=== PATIENT | female | born 1945 | race Caucasian/White ===

== ENCOUNTER → 2018-05-14 | Outpatient (CLI) | payer OTHER, BC ==
[~2018-05-14] VITALS: Ht 160 cm; Wt 72.6 kg
[~2018-05-14] MED LIST: CELEXA20 MG PO; COZAAR 25 MG TA25 M1 PO; DICLOFENAC SODI75 MG PO; ESTRADIOL 1 MG T1 M1 PO; LIPITOR80 MG PO; LISINOPRIL-HCT1 EAC1 PO; NORCO 10-325 T1 EACH PO; PREVACID15 MG PO; PROVERA2.5 MG PO; TRAMADOL 50 MG50 MG PO; ZOLPIDEM TART12.5 M1 PO
--- NOTE | ~2018-05-14 | HPC ---
[facility] [address] [place] [address] PAIN MANAGEMENT CONSULTATION Name: REYNA BEACH Room #: REG [facility].#: [id number] Admission: 05/14/18 Attend Phys: Serge Bhatti DO Discharge: Date of : 47 Report #: [id number] THIS REPORT FOR: //name// CC: BLAINE Perez Physician staff DATE OF SERVICE: 05/14/2018 CHIEF COMPLAINT: Thoracic radiculopathy. HISTORY OF PRESENT ILLNESS: As you know, the patient is a very pleasant 72-year-old female with longstanding history of thoracic pain radiating to her left side in a radicular fashion. She states her pain has been present for greater than 4 years. She denies any specific injury or trauma that may have led to symptom development. She was referred to our clinic at [facility] by her Neurosurgery team to trial thoracolumbar epidural injection to determine if her symptoms would show improvement. She underwent multiple procedures at our [facility] office with good and prolonged efficacy. Most recent epidural injection provided reportedly 80% improvement in overall pain, but unfortunately, her symptoms have begun to return. She is now placing pain score at around 8/10. She returns today to our [facility] office to begin treatment of her thoracic radiculopathy. She denies any new injury, new trauma or any changes in medical history since our last visit of 02/15/2018. ALLERGIES: No known drug allergies. CURRENT MEDICATIONS: Estradiol 1 mg once a day, lisinopril/hydrochlorothiazide 20/12.5 mg once a day, citalopram 20 mg per day, zolpidem 12.5 mg p.o. at bedtime, tramadol 50 mg p.r.n., atorvastatin 80 mg per day, diclofenac sodium 75 mg b.i.d., Provera 2.5 mg once a day, losartan 25 mg per day, lansoprazole 15 mg per day, hydrocodone 10/325 1 tab p.o. q. 6 hours p.r.n. pain. SOCIAL HISTORY: The patient denies tobacco, alcohol, IV or illicit drug use. She is a retired nurse, retired in the past. She is not receiving workmen's compensation nor is she trying to obtain disability benefits, unaccompanied today. PQRS: The patient has osteoarthritic changes of the low back, bilateral knees. No rheumatoid arthritis. She is not a fall risk, has not have a fall in the last 3 months. She is placing pain intensity at 8/10. She is not on blood thinners, but is treated for hypertension. She has been on long-term opioids for greater than 6 weeks, but has a low assessment for addiction. Functional assessment pain impact tool 29/70 indicating moderate interference of daily [address] [address] PAIN MANAGEMENT CONSULTATION Name: REYNA BEACH Room #: REG [facility]#: [id number] Admission: 05/14/18 Attend Phys: Serge Bhatti DO Discharge: Date of : 46 Report #: [id number] activities secondary to pain. IMAGING: No new imaging available. PHYSICAL EXAMINATION: VITAL SIGNS: Blood pressure 133/83, pulse 79, respiratory rate 16 and unlabored. The patient is 98% on room air. Height 5 feet 3 inches tall, weight 160 pounds, BMI calculated at 28.4. GENERAL: Well-developed, well-nourished, well-hydrated 72-year-old female appearing stated age, placing current pain score at 8/10. HEENT: Normocephalic, atraumatic. Pupils equal, round, reactive to light. Extraocular muscles are intact. Sclerae nonicteric without injection. NEUROLOGIC: Cranial nerves 2 through 12 grossly intact. Speech remains fluent. The patient deemed an excellent historian. LUNGS: Clear, no wheeze, rhonchi or rales. CARDIOVASCULAR: Regular. No appreciable gallop, no rub. ABDOMEN: Soft, nontender, nondistended. EXTREMITIES: Show no clubbing, no cyanosis, no edema. MUSCULOSKELETAL: There is palpatory tenderness over the paraspinal musculature, thoracic spine, mainly on the left side. No spinous process tenderness. Upper extremity strength, lower extremity strength is symmetrical 5/5. Seated straight leg raising negative. Supine straight leg raising positive at approximately 80 degrees. There are no rashes, lesions or ulcerations overlying the area of discomfort. ASSESSMENT: 1. Thoracic radiculopathy. 2. Stenosis of the thoracic spine. 3. Displacement of thoracic intervertebral disk with radiculopathy. 4. Thoracic spondylosis with radiculopathy. 5. Chronic intractable pain. PLAN: 1. The patient returns today in followup visit having noted an 80% improvement in overall pain with the previous thoracic epidural injection. She does very well with thoracic injections providing upwards of 2-3 months' worth of improvement. She returns today to our clinic at [facility] as scheduling conflicts were becoming difficult for the patient to continue to follow at our [facility] office. She has transferred her care to our clinic here to undergo next in the series of thoracic epidural injections. We have advised the patient of the risks and benefits of a thoracic epidural injection. These risks include but not necessarily limited to bleeding, bruising, infection, worsening pain, no relief of pain; also risk of temporary or permanent muscle weakness, temporary or permanent nerve damage, possible paralysis pneumothorax and . The patient states she understood and wished to proceed. [address] [address] PAIN MANAGEMENT CONSULTATION Name: REYNA BEACH Room #: [facility].#: [id number] Admission: 05/14/18 Attend Phys: Serge Bhatti DO Discharge: Date of : 46 Report #: [id number] 2. No medication changes made at today's visit. The patient will continue current medical therapy as previously prescribed. 3. We will see the patient back in followup visit on an as needed basis for the next in the series of thoracic epidural injections. PROCEDURE NOTE DESCRIPTION OF PROCEDURE: Thoracic epidural injection under fluoroscopic guidance. After obtaining written consent, the patient was taken back to fluoroscopy suite, placed in prone position with pillow under abdomen to decrease lumbar lordosis and to accentuate thoracic kyphosis. Skin overlying the thoracic area was then prepped and draped in aseptic fashion. The intervertebral spaces were identified by AP fluoroscopy. Skin and subcutaneous tissue overlying target site of injection anesthetized with 3 mL of 1% lidocaine. A 20-gauge 3-1/2 inch Tuohy needle advanced under fluoroscopic guidance towards the epidural space using a paramedian approach. Epidural space was identified using loss of resistance to air technique. After negative aspiration for heme or cerebrospinal fluid, 1 mL of Omnipaque was injected demonstrating excellent thoracic epidurogram. After negative aspiration for heme or cerebrospinal fluid, 5 mL of a solution containing 2 mL 40 mg per mL, 80 mg total triamcinolone, 3 mL lidocaine 1% injected slowly. Needle retracted shelter, flushed with 1 mL of 1% lidocaine and removed. Sterile bandage was placed over injection site. No new motor deficits present in the upper or lower extremities following procedure. The patient tolerated procedure well, carefully escorted to recovery room in stable condition. No apparent complications. After meeting discharge criteria, the patient discharged home. <ELECTRONICALLY SIGNED> By: Serge Bhatti DO 05/21/18 [id number] Serge Bhatti DO /nt
[2018-05-14 13:29] VITALS: BP 133/83
== END | disposition home or self-care (01) ==
LOC: PAIN 10:25
DX: M51.14 Intervertebral disc disorders with radiculopathy, thoracic region (principal); M48.04 Spinal stenosis, thoracic region; M47.24 Other spondylosis with radiculopathy, thoracic region; M19.90 Unspecified osteoarthritis, unspecified site; G89.29 Other chronic pain; I10 Essential (primary) hypertension; Z79.899 Other long term (current) drug therapy; Z79.891 Long term (current) use of opiate analgesic

== ENCOUNTER → 2018-07-17 | Outpatient (CLI) | payer OTHER, BC ==
[~2018-07-17] VITALS: Ht 160 cm; Wt 73.8 kg
--- NOTE | ~2018-07-17 | HPC ---
[facility] [address] [place] [address] PAIN MANAGEMENT CONSULTATION Name: REYNA BEACH Room #: REG [facility].#: [id number] Admission: 07/17/18 Attend Phys: Serge Bhatti DO Discharge: Date of : 46 Report #: [id number] THIS REPORT FOR: //name// CC: Trinity Bhatti Physician staff CHIEF COMPLAINT: Thoracic radiculopathy. HISTORY OF PRESENT ILLNESS: As you know, the patient is a very pleasant 73-year-old female with a longstanding history of thoracic pain radiating to her left side in a radicular fashion. She sought evaluation through Neurosurgery of [facility] who advised the patient to trial more conservative treatment options such as thoracic epidural injections. As you are aware, the patient has undergone thoracic epidural injections with our services with good efficacy. Most recent epidural injection provided 70-80% improvement in overall pain lasting for 2 to 2-1/2 months. Unfortunately, the symptoms have begun to return. She is now placing pain score at 7/10; states her pain is sharp, crushing, aching and periodic in nature; exacerbated with walking and certain activities; epidurals, hydrocodone therapy, heat and cold compresses tend to improve pain. She has returned today in followup visit requesting to undergo next in the series of thoracic epidural injections to address thoracic radicular symptoms. ALLERGIES: No known drug allergies. CURRENT MEDICATIONS: Hydrocodone, lansoprazole, losartan, Provera, diclofenac, atorvastatin, tramadol, zolpidem, citalopram, lisinopril/hydrochlorothiazide, estradiol. SOCIAL HISTORY: The patient denies tobacco, alcohol, IV or illicit drug use. She is a retired nurse, retiring years ago, unaccompanied today. IMAGING: No new imaging available. PQRS: The patient has known osteoarthritic changes of the lumbar spine, bilateral knees, no rheumatoid arthritis. She is not a fall risk, but did have an incidental fall, tripping over objects in her home without injury. She is not on blood thinners. She is treated for hypertension. She is not on chronic opioids. She has a low assessment for opioid addiction. Pain impact 31/70 indicating moderate interference in daily activities secondary to pain. PHYSICAL EXAMINATION: VITAL SIGNS: Blood pressure 116/79, pulse 103, respiratory rate 14 and unlabored. The patient is 97% on room air. Height 5 feet 3 inch tall, weight [facility] [address] [place] [address] PAIN MANAGEMENT CONSULTATION Name: REYNA BEACH Room #: REG [facility]#: [id number] Admission: 07/17/18 Attend Phys: Serge Bhatti DO Discharge: Date of : 46 Report #: [id number] 162.6 pounds, BMI calculated at 28.8. GENERAL: Well-developed, well-nourished, well-hydrated 73-year-old female appearing stated age, placing current pain score 7/10. HEENT: Normocephalic, atraumatic. Pupils equal, round, reactive to light. Extraocular muscles are intact. EXTREMITIES: Show no clubbing, no cyanosis, no edema. MUSCULOSKELETAL: There is some palpatory tenderness noted again over the paraspinal musculature of thoracic spine, no spinous process tenderness. Deep palpation of the area causes pain generation that radiates towards the left side. Upper extremity strength and lower extremity strength are symmetrical 5/5 as is the muscle bulk equal and symmetrical in upper and lower extremities. Seated straight leg raising negative. Supine straight leg raising negative today. Spurling's test negative. ASSESSMENT: 1. Thoracic radiculopathy. 2. Stenosis of the thoracic spine. 3. Displacement of a thoracic intervertebral disk. 4. Thoracic spondylosis without radiculopathy. 5. Chronic intractable pain. PLAN: 1. The patient returns today in followup visit having noted 70% improvement in overall pain with the previous thoracic epidural injection lasting for 2 months with a slow and progressive return of symptoms. The patient states she has been very active over the holiday season and this may have exacerbated her symptoms. She returns requesting to undergo next in the series of thoracic epidural injections as she has noted excellent benefit with previous injections. She has been advised the risks and benefits, states understood and wished to proceed. 2. No medication changes made at today's visit. The patient to continue current medical therapy as previously prescribed. 3. We will see the patient back in followup visit on an as needed basis for the next in the series of thoracic epidural injections. PROCEDURE NOTE DESCRIPTION OF PROCEDURE: Thoracic epidural steroid injection under fluoroscopic guidance. After obtaining written consent, the patient was taken back to Fluoroscopy Suite, placed in prone position with pillow under abdomen to decrease the lumbar lordosis and to accentuate thoracic kyphosis. Skin overlying the thoracic area was then prepped and draped in aseptic fashion. The intervertebral spaces of the thoracic spine were identified using caudal fluoroscopic imaging. Skin and subcutaneous tissue overlying target site of injection was then anesthetized with 3 mL of 1% lidocaine. [address] [address] PAIN MANAGEMENT CONSULTATION Name: REYNA BEACH Room #: [facility]#: [id number] Admission: 07/17/18 Attend Phys: Serge Bhatti DO Discharge: Date of : 46 Report #: [id number] A 20-gauge 3-1/2 inch Tuohy needle advanced under fluoroscopic guidance towards the epidural space using a paramedian approach. Epidural space identified using loss of resistance to air technique. After negative aspiration for heme or cerebrospinal fluid, 1 mL of Omnipaque was injected demonstrating a thoracic epidurogram. After negative aspiration for heme or cerebrospinal fluid, 5 mL of a solution containing 2 mL 40 mg per mL, 80 mg total triamcinolone, 3 mL of lidocaine 1% injected slowly. Needle retracted approximately half way, flushed with 1 mL of 1% lidocaine and removed. Sterile bandage was placed over injection site. No new motor deficits present in lower extremity following procedure. The patient tolerated the procedure well, carefully escorted to recovery room in stable condition. No apparent complications. After meeting discharge criteria, the patient discharged home. By: [id number] Serge Bhatti DO /nt
[2018-07-17 09:55] VITALS: BP 116/79
--- NOTE | 2018-07-17 10:13 | NUR ---
Pain Clinic Assessment: 1. History of Osteoarthritis: Left Lower Extremity Right Lower Extremity History of Rheumatoid Arthritis: Not Applicable 2. Height: 5 ft. 3 in. 160.0 cm. Weight: 162.6 lb. oz. 73.755 kg. Patient's BMI: 28.8 3. Vital Signs: BP: 116/79 Pulse: 103 Resp: 14 Temp: 02 Sat: 97 ECG Mon: 4. Pain Intensity: 7 5. Fall Risk: Dizziness: N Needs help standing or walking: N Fallen in the last 3 months: Y Fall risk comments: 6. Patient on Blood Thinner: None 7. History of Hypertension: Y 8. Opioid Therapy greater than 6 weeks: N Opiate Contract Signed: 9. Risk Assessment Tool Provided: 10. Functional Assessment Tool: 11. Recreational Drug Use: Never Drug Type: Tobacco Use: Never Smoker Tobacco Type: Amount or Packs/day: How Many Years: Alcohol Use: Yes Frequency: Quant:
== END | disposition home or self-care (01) ==
LOC: PAIN 07:01
DX: M51.14 Intervertebral disc disorders with radiculopathy, thoracic region (principal); M47.24 Other spondylosis with radiculopathy, thoracic region; M48.04 Spinal stenosis, thoracic region; G89.29 Other chronic pain; I10 Essential (primary) hypertension; M17.0 Bilateral primary osteoarthritis of knee; Z79.899 Other long term (current) drug therapy; Z79.891 Long term (current) use of opiate analgesic

== ENCOUNTER → 2018-09-11 | Outpatient (CLI) | payer OTHER, BC ==
[~2018-09-11] VITALS: Ht 162.6 cm; Wt 73.0 kg
[~2018-09-11] MED LIST changes: +BUTRANS1 EAC1 TRANSDERM
--- NOTE | ~2018-09-11 | HPC ---
[address] [address] PAIN MANAGEMENT CONSULTATION Name: REYNA BEACH Room #: REG [facility].#: [id number] Admission: 09/11/18 ������������������ Attend Phys: Serge Bhatti DO Discharge: ������������������ Date of : 46 Report #: [id number] THIS REPORT FOR: //name// CC: BLAINE Ruiz MD Physician staff DATE OF SERVICE: 09/11/2018 RENAL CONSULTATION CHIEF COMPLAINT: Thoracic radiculopathy. HISTORY OF PRESENT ILLNESS: As you know, the patient is a very pleasant 73-year-old female who returns today in followup visit with recurrent thoracic radicular symptoms. She was referred to our clinic by her neurosurgery team to trial thoracic epidural injections under fluoroscopic guidance. She does very well with each injection, but unfortunately she is beginning to see reduction in efficacy. She returns today in followup visit to discuss options for treatment. We discussed with the patient in the past treatment options could include physical therapy, stretching exercise, core strengthening, medication changes, adding a baseline pain medication to her current regimen. We discussed the thoracic epidural injections and ultimately surgical decompression. She returns today, discussed possibility of making adjustments in medication therapy. She is considering to undergo the next in the series of thoracic injections to address residual pain, but wishes to trial conservative treatment initially. ALLERGIES: No known drug allergies. CURRENT MEDICATIONS: Hydrocodone, lansoprazole, losartan, Provera, diclofenac, atorvastatin, tramadol, zolpidem, citalopram, lisinopril, hydrochlorothiazide and estradiol. SOCIAL HISTORY: The patient denies tobacco, alcohol, IV or illicit drug use. 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 IMAGING: No new imaging available. PQRS: The patient has osteoarthritic changes of the thoracolumbar area and bilateral knees, no rheumatoid arthritis. She is not a fall risk, has not had a fall in the last 3 months except for an incidental fall tripping over objects at her home. She is not on blood thinners. She is treated for hypertension. She is not on chronic opioids. She has a low assessment for opioid addiction. She [facility] [address] [place] [address] PAIN MANAGEMENT CONSULTATION Name: REYNA BEACH Room #: [facility]#: [id number] Admission: 09/11/18 ������������������ Attend Phys: Serge Bhatti DO Discharge: ������������������ Date of : 46 Report #: [id number] is placing pain impact score today at 29/70, moderate interference of daily activities secondary to pain. PHYSICAL EXAMINATION: VITAL SIGNS: Blood pressure 134/85, pulse 89, respiratory rate 16 and unlabored. The patient is 98% on room air. Height 5 feet 4 inches tall, weight 161 pounds and BMI calculated 27.6. GENERAL: Well-developed, well-nourished, well-hydrated 73-year-old female appearing stated age, placing current pain score today 2/10. HEENT: Normocephalic and atraumatic. Pupils equal, round and reactive to light. EXTREMITIES: Show no clubbing, no cyanosis, and no edema. MUSCULOSKELETAL: The patient does have some palpatory tenderness over the paraspinal musculature of the thoracic area, no spinous process tenderness. There are no rashes, lesions or ulcerations overlying area of discomfort. Deep inhalation and exhalation is met with no increase in pain. Upper extremity strength is symmetrical 5/5 as is lower extremity strength 5/5. Spurling's test negative. Seated straight leg raising and supine straight leg raising negative. ASSESSMENT: 1. Thoracic radiculopathy. 2. Spinal stenosis of the thoracic spine. 3. Displacement of a thoracic intervertebral disk. 4. Thoracic spondylosis with radiculopathy. 5. Chronic intractable pain. PLAN: 1. The patient returns today in followup visit where we have discussed again today treatment options for thoracic radiculopathy. I am concerned as the patient is not showing as fpc benefit with previous thoracic injections. We originally got excellent benefit of symptoms, but this has begun to note reduction in time frame of pain improvement. We discussed possibility of starting the patient on medication. She has been wished to consider that today. She is planning to make an appointment in followup visit to undergo a thoracic injection if medications are ineffective. 2. Recommend starting the patient on a Butrans patch 5 mcg patch. This medication will provide baseline pain control; it will reduce her reliance on oral hydrocodone or tramadol. It will provide her good long-term benefit with little or no side effects such as seen with typical opioid medications; GI upset, nausea and pleuritis. We recommend Butrans 5 mcg patch as an initial trial. If this is sufficient to control pain we recommend continuing the therapy. Otherwise, we may look to adjust this further. The patient was provided prescription of Butrans 5 mcg patch q. week. I have given the patient #4 patches, one month worth of medication. The patient will trial the medication over the next week, and contact our clinic to advise of efficacy. I did advise the patient today that the first day to 2 days with the Butrans patch [address] [address] PAIN MANAGEMENT CONSULTATION Name: REYNA BEACH Room #: REG [facility]#: [id number] Admission: 09/11/18 ������������������ Attend Phys: Serge Bhatti DO Discharge: ������������������ Date of : 46 Report #: [id number] may be noted as having no improvement in symptoms. We are really looking towards the last 3 days of treatment once volume of distribution has been completed to determine the efficacy of this medication. 3. The patient will return to our clinic on an as needed basis for possible thoracic epidural injection. We are hopeful the medication adjustments made above will provide the patient with good benefit, so she does not need to rely on thoracic epidural injections as her only treatment source. We will see her back on an as needed basis for this type of injection. 4. The patient and I did discuss the possibility of having her return to see Neurosurgery if injection therapies are ineffective and medication management does not provide good baseline control. She will consider this option. ��������������������������������������������� ���������������������������������������� By: ��������������������������������������������� [id number] [id number] Serge Bhatti DO /nt
[2018-09-11 11:03] VITALS: BP 134/85
--- NOTE | 2018-09-11 11:07 | NUR ---
Pain Clinic Assessment: 1. History of Osteoarthritis: Left Lower Extremity Right Lower Extremity History of Rheumatoid Arthritis: Not Applicable 2. Height: 5 ft. 4 in. 162.6 cm. Weight: 161.0 lb. oz. 73.029 kg. Patient's BMI: 27.6 3. Vital Signs: BP: 134/85 Pulse: 89 Resp: 16 Temp: 02 Sat: 98 ECG Mon: 4. Pain Intensity: 2 5. Fall Risk: Dizziness: N Needs help standing or walking: N Fallen in the last 3 months: N Fall risk comments: 6. Patient on Blood Thinner: None 7. History of Hypertension: Y 8. Opioid Therapy greater than 6 weeks: N Opiate Contract Signed: 9. Risk Assessment Tool Provided: LOW 10. Functional Assessment Tool: 11. Recreational Drug Use: Never Drug Type: Tobacco Use: Never Smoker Tobacco Type: Amount or Packs/day: How Many Years: Alcohol Use: Yes Frequency: Daily Quant: 2
== END ==
LOC: PAIN 07-31 14:30
DX: M47.24 Other spondylosis with radiculopathy, thoracic region (principal); G89.4 Chronic pain syndrome; M48.04 Spinal stenosis, thoracic region; Z79.899 Other long term (current) drug therapy

== ENCOUNTER → 2018-09-18 | Outpatient (CLI) | payer OTHER, BC ==
[~2018-09-18] VITALS: Ht 162.6 cm; Wt 72.8 kg
[2018-09-18 11:26] VITALS: BP 113/75
--- NOTE | 2018-09-18 11:53 | NUR ---
Pain Clinic Assessment: 1. History of Osteoarthritis: Left Lower Extremity Right Lower Extremity History of Rheumatoid Arthritis: Not Applicable 2. Height: 5 ft. 4 in. 162.6 cm. Weight: 160.4 lb. oz. 72.757 kg. Patient's BMI: 27.5 3. Vital Signs: BP: 113/75 Pulse: 85 Resp: 16 Temp: 02 Sat: 98 ECG Mon: 4. Pain Intensity: 2 5. Fall Risk: Dizziness: N Needs help standing or walking: N Fallen in the last 3 months: N Fall risk comments: 6. Patient on Blood Thinner: None 7. History of Hypertension: Y 8. Opioid Therapy greater than 6 weeks: N Opiate Contract Signed: 9. Risk Assessment Tool Provided: LOW 10. Functional Assessment Tool: 11. Recreational Drug Use: Never Drug Type: Tobacco Use: Never Smoker Tobacco Type: Amount or Packs/day: How Many Years: Alcohol Use: Yes Frequency: Quant:
--- NOTE | 2018-09-23 08:05 | HPC ---
[facility] [place] [address] PAIN MANAGEMENT CONSULTATION Name: REYNA BEACH Room #[facility] [id number] Admission: 09/18/18 ������������������ Attend Phys: Serge Bhatti DO Discharge: ������������������ Date of : 47 Report #: [id number] THIS REPORT FOR: //name// CC: Rosa Isela Zelaya Physician staff REFERRING PHYSICIAN: Dr. Lorenzo Zelaya and Rosa Isela Rodriges. CHIEF COMPLAINT: Thoracic radiculopathy. HISTORY OF PRESENT ILLNESS: As you know, the patient is a very pleasant 73-year-old female who returns today in followup visit indicating improvement with the Butrans patch that was started at our last visit. We gave the patient a 5 mcg patch as a trial to determine if her symptoms would be improved. She is reporting nearly 40% improvement in overall symptoms at this juncture. The patient feels that the medication has improved her overall pain to where she is now able to go about more activities of daily living without significant pain interference. She returns today in followup visit to make further adjustments in the Butrans therapy in hopes of providing increased analgesic benefit. She is pleased with response to date. She is denying any side effects at this time. ALLERGIES: No known drug allergies. CURRENT MEDICATIONS: Butrans, hydrocodone, lansoprazole, losartan, Provera, diclofenac, atorvastatin, tramadol, zolpidem, citalopram, lisinopril, hydrochlorothiazide and estradiol. SOCIAL HISTORY: The patient denies tobacco, alcohol or IV or illicit drug use. She is a retired nurse. Retired years ago, unaccompanied today. PQRS: The patient has osteoarthritic changes of the lumbar spine, bilateral knees, no rheumatoid arthritis. She is not a fall risk, has not had a fall in the last 3 months except for tripping over an object at home with an incidental fall approximately a month and half ago. She is treated for hypertension. She is not on any blood thinners. She is not taking any chronic opioids over a 3-month period. She has a low assessment for opioid addiction. Pain impact score 31/70, moderate interference of daily activities secondary to pain. PHYSICAL EXAMINATION: GENERAL: Well-developed, well-nourished, well-hydrated 73-year-old female appearing stated age, pain is rated today at around 2/10. HEENT: Normocephalic and atraumatic. Pupils equal, round and reactive to light. EXTREMITIES: Show no clubbing, no cyanosis and no edema. [address] [address] PAIN MANAGEMENT CONSULTATION Name: REYNA BEACH Room #[facility]#: [id number] Admission: 09/18/18 ������������������ Attend Phys: Serge Bhatti DO Discharge: ������������������ Date of : 47 Report #: [id number] MUSCULOSKELETAL: There is some palpatory tenderness once again noted over the paraspinal musculature of the thoracic spine and no spinous process tenderness. Upper extremity strength, lower extremity strength symmetrical 5/5. She is intact to light touch from C5-T1 dermatomes, from T1-T12 dermatomes and again from L1 through S2 dermatomes. ASSESSMENT: 1. Thoracic radiculopathy. 2. Stenosis of the thoracic spine. 3. Displacement of a thoracic intervertebral disk. 4. Thoracic spondylosis without radiculopathy. 5. Chronic intractable pain. PLAN: 1. The patient returns today in followup visit having noted excellent benefit with the initial dosing of Butrans at 5 mcg q. week. We would recommend a slight increase in this medication from the 5 mcg patch to the 10 mcg patch in hopes of providing improved analgesic benefit, I believe 10 mcg patches should be appropriate form as well given her response to the 5 mcg dose, she will watch as we increase this medication for any potential side effects including somnolence, decrease in mental acuity, disorientation, confusion, mental slowing or increasing constipation issues. Today, the patient has none of these side effects. We are hopeful the patient will continue to see good benefit with the use of medication. We have instructed the patient for this next week to double her patch at 10 mcg utilizing 2 of the 5 mcg patches. She should see results of the 10 mcg dosing approximately 2-3 days after the increase in medication. If no side effects, but improvement in analgesia, we will be more than willing to provide the patient with a prescription of 10 mcg Butrans patches that will be sent to her local pharmacy. She will keep us informed of the response over the next 7 days. 2. We will see the patient back in followup visit on an as needed basis for possible changes in medication therapy or interventional treatment such as a thoracic epidural injection to address thoracic radiculopathy. We are hopeful the medications adjusted above will provide the patient with good benefit preserving the thoracic injections for when her pain intensifies to a level of intolerable. ��������������������������������������������� <ELECTRONICALLY SIGNED> ���������������������������������������� By: Serge Bhatti DO ��������������������������������������������� 09/23/18 0805 [id number] Serge Bhatti DO /nt
== END ==
LOC: PAIN 07:09
DX: M47.24 Other spondylosis with radiculopathy, thoracic region (principal); M48.04 Spinal stenosis, thoracic region; M51.14 Intervertebral disc disorders with radiculopathy, thoracic region; G89.4 Chronic pain syndrome; Z79.899 Other long term (current) drug therapy

== ENCOUNTER → 2018-12-04 | Outpatient (CLI) | payer OTHER, BC ==
[~2018-12-04] VITALS: Ht 162.6 cm; Wt 68.2 kg
[~2018-12-04] MED LIST changes: +BUTRANS1 EAC2 TRANSDERM; +VOLTAREN GEL 1100 G2 TOP
[2018-12-04 11:27] VITALS: BP 115/66
--- NOTE | 2018-12-04 11:48 | NUR ---
Pain Clinic Assessment: 1. History of Osteoarthritis: Left Lower Extremity Right Lower Extremity History of Rheumatoid Arthritis: Not Applicable 2. Height: 5 ft. 4 in. 162.6 cm. Weight: 150.4 lb. oz. 68.221 kg. Patient's BMI: 25.8 3. Vital Signs: BP: 115/66 Pulse: 76 Resp: 14 Temp: 02 Sat: 99 ECG Mon: 4. Pain Intensity: 7 5. Fall Risk: Dizziness: N Needs help standing or walking: N Fallen in the last 3 months: N Fall risk comments: 6. Patient on Blood Thinner: None 7. History of Hypertension: Y 8. Opioid Therapy greater than 6 weeks: N Opiate Contract Signed: 9. Risk Assessment Tool Provided: LOW-0 10. Functional Assessment Tool: 11. Recreational Drug Use: Never Drug Type: Tobacco Use: Never Smoker Tobacco Type: Amount or Packs/day: How Many Years: Alcohol Use: Yes Frequency: Quant:
--- NOTE | 2018-12-11 12:16 | HPC ---
[facility] [address] [place] [address] PAIN MANAGEMENT CONSULTATION Name: REYNA BEACH Room #: [facility]#: [id number] Admission: 12/04/18 ������������������ Attend Phys: Serge Bhatti DO Discharge: ������������������ Date of : 47 Report #: [id number] THIS REPORT FOR: //name// CC: Rosa Isela Velazquez MD Physician staff DATE OF SERVICE: 12/04/2018 REFERRING PHYSICIAN: Lorenzo Velazquez M.D. CHIEF COMPLAINT: Right shoulder pain. HISTORY OF PRESENT ILLNESS: As you know, the patient is a very pleasant 73-year-old female who returns today in followup visit for continued right shoulder pain. The patient reports previous intra-articular shoulder injection gave 90% improvement in overall pain lasting for up to 4 weeks. She returns with pain level of 7/10, states pain is periodic, aching, crushing and sharp, exacerbated with activity, improves with intra-articular shoulder injection, hydrocodone, cold therapy and hot compresses. She returns today to undergo the next in the series of right shoulder injections in hopes of improving pain further. She denies new injury or trauma that may have led to the symptoms that would continue. ALLERGIES: No known drug allergies. CURRENT MEDICATIONS: See chart. SOCIAL HISTORY: The patient denies tobacco, IV or illicit drug use. Denies any chronic alcohol use. 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 IMAGING DATA: No new imaging available. PQRS: Osteoarthritic changes of the bilateral shoulders, lumbar spine and knees. No rheumatoid arthritis. She is not a fall risk, has not had a fall in the last 3 months. She is not on blood thinners but is treated for hypertension. She is on opioids and has been for 6 weeks. She has a low opioid addiction potential. She is placing pain impact score 29/70 indicating moderate interference of daily activities secondary to pain. PHYSICAL EXAMINATION: VITAL SIGNS: Blood pressure 115/66, pulse 76 and respiratory rate 14 and unlabored. The patient is 99% on room air. Height 5 feet 4 inches tall, weight [facility] [address] [place] [address] PAIN MANAGEMENT CONSULTATION Name: REYNA BEACH Room #: [facility]#: [id number] Admission: 12/04/18 ������������������ Attend Phys: Serge Bhatti DO Discharge: ������������������ Date of : 46 Report #: [id number] 150.4 pounds and BMI calculated 25.8. GENERAL: Well-developed, well-nourished, well-hydrated 72-year-old female appearing stated age, pain is rated today at a level of 7/10. HEENT: Normocephalic and atraumatic. Pupils equal, round and reactive to light. EXTREMITIES: Show no clubbing, no cyanosis and no edema. MUSCULOSKELETAL: There is remaining palpatory tenderness over the right shoulder, both anteriorly and posteriorly. Deep palpation of the area causes intensification of pain. This pain directly over the humeral groove of the biceps tendon. Active and passive range of motion of right shoulder is met with increased pain. ASSESSMENT: 1. Right shoulder pain. 2. Right shoulder osteoarthritis. PLAN: 1. The patient returns today in followup visit having noted excellent benefit with an intra-articular shoulder injection at the last visit. She reports up to 90% improvement in overall pain lasting for 4 weeks. Unfortunately, her symptoms have begun to return. She returns today in followup visit to undergo next in the series of right intra-articular shoulder injections under fluoroscopic guidance. She has been advised risks and benefits of the procedure, states understood and wished to proceed. 2. No changes were made in medication management. We did provide a refill of her Butrans 20 mcg patch 1 patch q. 7 days. I have given the patient #4 patches, which is 1 month worth on medications. She will watch for any side effects. If this medication is working beneficially when she returns in 1 month, we will provide further prescriptions. 3. We will see the patient back in followup visit on an as needed basis for intra-articular shoulder injections. Otherwise, we will see her back in 1 month for medication management. PROCEDURE NOTE DESCRIPTION OF PROCEDURE: Right intra-articular shoulder injection under fluoroscopic guidance. After obtaining written consent, the patient was taken back to fluoroscopy suite, placed in a supine position. The image intensifier (C-arm) was then brought into position over the right shoulder and imaging was obtained. Area was marked with sterile marker and prepped and draped with chlorhexidine. A 27-gauge 1-1/4 inch needle was then used to anesthetize skin and subcutaneous tissue with 2 mL of 1% lidocaine. A 25-gauge 2-inch needle was advanced under fluoroscopic guidance towards the [address] [address] PAIN MANAGEMENT CONSULTATION Name: REYNA BEACH Room #: [facility]#: [id number] Admission: 12/04/18 ������������������ Attend Phys: Serge Bhatti DO Discharge: ������������������ Date of : 47 Report #: [id number] proximal head of the right humerus. Needle was advanced until reaching the osseous structure and then retracted approximately 1 mm. After negative aspiration for heme, 0.2 mL of Omnipaque injected demonstrating excellent right shoulder arthrogram. After negative aspiration for heme, 3 mL of a solution containing 1 mL 40 mg per mL, 40 mg total triamcinolone and 2 mL bupivacaine 0.5% injected slowly. Needle retracted mcfp, flushed with 0.5 mL of 0.5% bupivacaine and removed. Sterile bandage placed over injection site. There were no new motor deficits present in the upper extremity following procedure. The patient tolerated procedure well, carefully escorted to recovery room in stable condition. No apparent complications. After meeting discharge criteria, the patient discharged home. ��������������������������������������������� <ELECTRONICALLY SIGNED> ���������������������������������������� By: Serge Bhatti DO ��������������������������������������������� 12/11/18 1216 1515 2232 Serge Bhatti DO /nt
== END | disposition home or self-care (01) ==
LOC: PAIN 06:50
DX: M19.011 Primary osteoarthritis, right shoulder (principal); Z88.8 Allergy status to other drugs, medicaments and biological substances; Z79.899 Other long term (current) drug therapy

== ENCOUNTER → 2019-02-18 | Outpatient (CLI) | payer OTHER, BC ==
[~2019-02-18] VITALS: Ht 162.6 cm; Wt 67.6 kg
[2019-02-18 09:12] VITALS: BP 145/78
--- NOTE | 2019-02-18 09:20 | NUR ---
Pain Clinic Assessment: 1. History of Osteoarthritis: Left Lower Extremity Right Lower Extremity History of Rheumatoid Arthritis: Not Applicable 2. Height: 5 ft. 4 in. 162.6 cm. Weight: 149.0 lb. oz. 67.586 kg. Patient's BMI: 25.6 3. Vital Signs: BP: 145/78 Pulse: 81 Resp: 16 Temp: 02 Sat: 100 ECG Mon: 4. Pain Intensity: 6 5. Fall Risk: Dizziness: N Needs help standing or walking: N Fallen in the last 3 months: N Fall risk comments: 6. Patient on Blood Thinner: None 7. History of Hypertension: Y 8. Opioid Therapy greater than 6 weeks: N Opiate Contract Signed: 9. Risk Assessment Tool Provided: LOW-0 10. Functional Assessment Tool: 11. Recreational Drug Use: Never Drug Type: Tobacco Use: Never Smoker Tobacco Type: Amount or Packs/day: How Many Years: Alcohol Use: Yes Frequency: Daily Quant: 1-2
--- NOTE | 2019-02-25 11:15 | HPC ---
[facility] [place] [address] PAIN MANAGEMENT CONSULTATION Name: REYNA BEACH [facility] [id number] Admission: 02/18/19 Attend Phys: Serge Bhatti DO Discharge: Date of : 47 Report #: [id number] THIS REPORT FOR: //name// CC: Trinity Velazquez MD Physician staff DATE OF SERVICE: 02/18/2019 REFERRING PHYSICIAN: Trinity Styles NP. PRIMARY CARE PHYSICIAN: Lorenzo Velazquez M.D. CHIEF COMPLAINT: Right shoulder pain. HISTORY OF PRESENT ILLNESS: As you know, the patient is a very pleasant 73-year-old female who returns today in followup visit with recurrent right shoulder pain. She is placing her shoulder pain at 6/10. Previous intra-articular shoulder injection according to the patient gave 100% improvement in overall pain lasting for nearly 5 weeks, unfortunately her symptoms have begun to return. She returns today in followup visit requesting next in the series of right intra-articular shoulder injections. She does note today a recent change in her medical history. She has had an implanted intrathecal pump for chronic axial back pain, which is currently being titrated. She is getting good response in her low back, but is not receiving much in the way of improvement from the shoulder standpoint. She returns today to undergo intra-articular shoulder injection under fluoroscopic guidance. ALLERGIES: No known drug allergies. CURRENT MEDICATIONS: See chart. SOCIAL HISTORY: The patient denies tobacco, IV or illicit drug use. Denies any chronic alcohol use. 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 IMAGING: No new imaging available. PQRS: The patient has known osteoarthritic changes of bilateral shoulders, lumbar spine and knees. No rheumatoid arthritis. She is not a fall risk, has not had a fall in last 3 months. She is placing pain intensity 6/10. She is not on blood thinners, but is treated for hypertension. She is not on chronic opioids, but does have a low opioid addiction potential. She is placing pain impact score 29/70 moderate interference of daily activities secondary to pain. [facility] [address] [place] [address] PAIN MANAGEMENT CONSULTATION Name: REYNA BEACH Room #: [facility]#: [id number] Admission: 02/18/19 Attend Phys: Serge Bhatti DO Discharge: Date of : 47 Report #: [id number] PHYSICAL EXAMINATION: VITAL SIGNS: Blood pressure 145/78, pulse 81, respiratory rate 16 and unlabored. The patient is 100% on room air. Height 5 feet 4 inches tall, weight 149 pounds, BMI calculated 25.6. GENERAL: Well-developed, well-nourished, well-hydrated 72-year-old female, appears stated age, pain is rated around 6/10. HEENT: Normocephalic, atraumatic. Pupils equal, round and reactive to light. EXTREMITIES: Show no clubbing, no cyanosis, and no edema. MUSCULOSKELETAL: Upper extremity strength appears symmetrical 5/5. There is restriction of motion with right shoulder with abduction of the shoulder between the 45 degree angle and 110 degree angle. Pain is elicited with this maneuver. Srinivasa test is positive on the right. Apprehension test is positive on the right. There is noted pain with active and passive range of motion of right shoulder. ASSESSMENT: 1. Right shoulder pain. 2. Right shoulder osteoarthritis. PLAN: 1. The patient returns today in followup visit requesting to undergo a right intra-articular shoulder injection under fluoroscopic guidance. She reports 100% improvement in overall pain with previous injection lasting for greater than 5 weeks, but unfortunately, her symptoms have begun to return with increasing activity at home. She returns today to undergo next in the series of right intra-articular shoulder injections. We have talked at the last visit about more definitive treatment options from the shoulder standpoint including further imaging and a referral to Orthopedics. At this time, the patient wishes to delay that option in hopes of gaining improvement with injections. If these do not remain effective, then look towards surgical options. 2. The patient was provided no changes in medication management. She will continue current medical therapy as previously prescribed. 3. We will see the patient back in followup visit on an as needed basis for intra-articular shoulder injection when necessary PROCEDURE NOTE DESCRIPTION OF PROCEDURE: Right intra-articular shoulder injection under fluoroscopic guidance. After obtaining written consent, the patient was taken back to fluoroscopy suite, placed in a supine position. The image intensifier (C-arm) was then brought into position over the right shoulder and imaging was obtained. Area was marked with sterile marker and prepped and draped with chlorhexidine. A 27-gauge 1-1/4 inch needle was then used to anesthetize the skin and [address] [address] PAIN MANAGEMENT CONSULTATION Name: REYNA BEACH Room #: [facility]#: [id number] Admission: 02/18/19 Attend Phys: Serge Bhatti DO Discharge: Date of : 47 Report #: [id number] subcutaneous tissue with 2 mL of 1% lidocaine. A 25-gauge 2-inch needle was advanced under fluoroscopic guidance towards the proximal head of the right humerus. Needle was advanced until reaching the proximal head then retracted approximately 1 mm. After negative aspiration for heme, 0.3 mL of Omnipaque injected demonstrating an excellent right shoulder arthrogram. After negative aspiration for heme, 3 mL of a solution containing 1 mL 40 mg per mL, 40 mg total triamcinolone and 2 mL bupivacaine 0.5% injected slowly. Needle then retracted snf, flushed with 1 mL of 1% lidocaine and then removed. Sterile bandage placed over injection site. No new motor deficits present in the right upper extremity following procedure. The patient tolerated the procedure well, carefully escorted to recovery room in stable condition. No apparent complications. After meeting discharge criteria, the patient discharged home. <ELECTRONICALLY SIGNED> By: Serge Bhatti DO 02/25/19 1115 0830 1319 Serge Bhatti DO /nt
== END | disposition home or self-care (01) ==
LOC: PAIN 12-18 08:58
DX: M19.011 Primary osteoarthritis, right shoulder (principal); M19.90 Unspecified osteoarthritis, unspecified site; I10 Essential (primary) hypertension; Z79.891 Long term (current) use of opiate analgesic; Z88.8 Allergy status to other drugs, medicaments and biological substances; Z79.899 Other long term (current) drug therapy; Z98.890 Other specified postprocedural states

== ENCOUNTER → 2019-05-27 | Outpatient (CLI) | payer OTHER, BC ==
[~2019-05-27] VITALS: Ht 162.6 cm; Wt 69.1 kg
[2019-05-27 11:19] VITALS: BP 141/83
--- NOTE | 2019-05-27 11:34 | NUR ---
Pain Clinic Assessment: 1. History of Osteoarthritis: Left Lower Extremity Right Lower Extremity History of Rheumatoid Arthritis: Not Applicable 2. Height: 5 ft. 4 in. 162.6 cm. Weight: 152.4 lb. oz. 69.128 kg. Patient's BMI: 26.1 3. Vital Signs: BP: 141/83 Pulse: 70 Resp: 16 Temp: 02 Sat: 100 ECG Mon: 4. Pain Intensity: 10 5. Fall Risk: Dizziness: N Needs help standing or walking: N Fallen in the last 3 months: N Fall risk comments: 6. Patient on Blood Thinner: None 7. History of Hypertension: Y 8. Opioid Therapy greater than 6 weeks: N Opiate Contract Signed: 9. Risk Assessment Tool Provided: LOW-0 10. Functional Assessment Tool: 11. Recreational Drug Use: Never Drug Type: Tobacco Use: Never Smoker Tobacco Type: Amount or Packs/day: How Many Years: Alcohol Use: Yes Frequency: Quant:
--- NOTE | 2019-05-28 12:58 | HPC ---
[facility] [place] [address] PAIN MANAGEMENT CONSULTATION Name: REYNA BEACH Room #: REG [facility]#: [id number] Admission: 05/27/19 Attend Phys: Serge Bhatti DO Discharge: Date of : 47 Report #: [id number] THIS REPORT FOR: //name// CC: Trinity Velazquez MD Physician staff DATE OF SERVICE: 05/27/2019 REFERRING PHYSICIAN: Trinity Styles NP. PRIMARY CARE PHYSICIAN: Lorenzo Velazquez MD. CHIEF COMPLAINT: Right shoulder pain. HISTORY OF PRESENT ILLNESS: As you know, the patient is a very pleasant 73-year-old female who returns today in followup visit with recurrent right shoulder pain. Our previous intra-articular shoulder injection provided excellent improvement in pain, reporting near 100% improvement in overall symptoms until this last week where she was more active in the kitchen and lifting objects during the giving break with family around. She exacerbated her right shoulder pain and returns today with pain level of 10/10, requesting a repeat intra-articular shoulder injection. The patient denies any specific injury that may have led to the recurrence of pain. The patient is able to easily localize pain over the right shoulder and pain is elicited with active and passive range of motion. ALLERGIES: No known drug allergies. CURRENT MEDICATIONS: See chart. SOCIAL HISTORY: The patient denies tobacco, IV or illicit drug use. Denies any chronic alcohol use. 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 IMAGING: No new imaging available. PQRS: The patient has known arthritic changes of the bilateral shoulders right greater than, lumbar spine and knees. No rheumatoid arthritis. She is not at fall risk, has not had a fall in the last 3 months. She is not on blood thinners, nor she is treated for hypertension. She is not on chronic opioids, has a low opiate addiction potential. Pain impact score of 29/70 indicating moderate interference of daily activities secondary to pain. [facility] [address] [place] [address] PAIN MANAGEMENT CONSULTATION Name: REYNA BEACH Room #: [facility]#: [id number] Admission: 05/27/19 Attend Phys: Serge Bhatti DO Discharge: Date of : 46 Report #: [id number] PHYSICAL EXAMINATION: VITAL SIGNS: Blood pressure 141/83, pulse 70, respiratory rate 16 and unlabored. The patient is 100% on room air. Height 5 feet 4 inches tall, weight 152.4 pounds, BMI calculated 26.1. GENERAL: Well-developed, well-nourished, well-hydrated 73-year-old female, placing current pain score 10/10. HEENT: Normocephalic, atraumatic. Pupils equal, round, reactive to light. Extraocular muscles are intact. EXTREMITIES: Show no clubbing, no cyanosis, no edema. MUSCULOSKELETAL: Pain is elicited with active and passive range of motion of the right shoulder when compared to left. There is crepitus noted with passive range of motion. Pain is directly over the anterior and posterior portion of the shoulder. There does not appear to be any significant rotator cuff injury, though I am concerned of this today. The provocation testing does show increased discomfort, but no alicia loss of strength. ASSESSMENT: 1. Right shoulder pain. 2. Right shoulder osteoarthritis. PLAN: 1. The patient returns today in followup visit having noted excellent benefit with previous intra-articular shoulder injection provided at our visit of 12/04/2018. She has been doing well since that time, but unfortunately over the last week, she had increased activity and use of the right shoulder, which exacerbated her right shoulder pain. She is denying any radicular component of symptoms and provocation testing is consistent with right shoulder osteoarthritis and possible rotator cuff injury. We discussed with the patient the risks and benefits of a repeated right intra-articular shoulder injection. She states she understood and wished to proceed. 2. No medication changes made at today's visit. The patient will continue current medical therapy as previously prescribed. 3. We will see the patient back in followup visit on an as needed basis for possible next in the series of right intra-articular shoulder injections. We are hopeful the patient will see good and prolonged benefit with today's procedure. PROCEDURE NOTE DESCRIPTION OF PROCEDURE: Right intra-articular shoulder injection under fluoroscopic guidance. After obtaining written consent, the patient was taken back to fluoroscopy suite, placed in supine position. The image intensifier was then brought into position over the right shoulder and imaging was obtained. The area was marked with sterile marker and prepped with chlorhexidine. A 27-gauge 1-/[address] [address] PAIN MANAGEMENT CONSULTATION Name: REYNA BEACH Room #: REG [facility]#: [id number] Admission: 05/27/19 Attend Phys: Serge Bhatti DO Discharge: Date of : 46 Report #: [id number] needle was then used to anesthetize skin and subcutaneous tissue with 3 mL of 1% lidocaine. A 25-gauge 2-inch needle was advanced under fluoroscopic guidance towards the proximal head of the right humerus. Needle was advanced until reaching the osseous structure then retracted approximately 1-2 mm. After negative aspiration for heme, 0.4 mL of Omnipaque injected demonstrating excellent right shoulder arthrogram. After negative aspiration for heme, 3 mL of a solution containing 1 mL 40 mg per mL, 40 mg total triamcinolone along with 2 mL bupivacaine 0.5% was injected slowly. Needle retracted retirement, flushed with 1 mL of 1% lidocaine then removed. Sterile bandage placed over injection site. There were no new motor deficits present in the upper extremity following procedure. The patient tolerated procedure well, carefully escorted to recovery room in stable condition. No apparent complications. After meeting discharge criteria, the patient discharged home. <ELECTRONICALLY SIGNED> By: Serge Bhatti DO 05/28/19 [id number] Serge Bhatti DO /nt
== END | disposition home or self-care (01) ==
LOC: PAIN 06:55
DX: M25.511 Pain in right shoulder (principal); M19.011 Primary osteoarthritis, right shoulder; G89.29 Other chronic pain; Z98.890 Other specified postprocedural states; Z79.899 Other long term (current) drug therapy; Z88.8 Allergy status to other drugs, medicaments and biological substances

== ENCOUNTER → 2019-09-23 | Outpatient (CLI) | payer OTHER, BC ==
[~2019-09-23] VITALS: Ht 162.6 cm; Wt 67.4 kg
[2019-09-23 09:37] VITALS: BP 103/76
--- NOTE | 2019-09-23 10:01 | NUR ---
Pain Clinic Assessment: 1. History of Osteoarthritis: Left Lower Extremity Right Lower Extremity History of Rheumatoid Arthritis: Not Applicable 2. Height: 5 ft. 4 in. 162.6 cm. Weight: 148.6 lb. oz. 67.404 kg. Patient's BMI: 25.5 3. Vital Signs: BP: 103/76 Pulse: 73 Resp: 16 Temp: 02 Sat: 100 ECG Mon: 4. Pain Intensity: 7 WITH MEDS 5. Fall Risk: Dizziness: N Needs help standing or walking: N Fallen in the last 3 months: N Fall risk comments: 6. Patient on Blood Thinner: None 7. History of Hypertension: Y 8. Opioid Therapy greater than 6 weeks: N Opiate Contract Signed: 9. Risk Assessment Tool Provided: LOW-0 10. Functional Assessment Tool: 11. Recreational Drug Use: Never Drug Type: Tobacco Use: Never Smoker Tobacco Type: Amount or Packs/day: How Many Years: Alcohol Use: Yes Frequency: Quant:
--- NOTE | 2019-09-24 11:57 | HPC ---
[address] [address] PAIN MANAGEMENT CONSULTATION Name: REYNA BEACH Room #: REG [facility]#: [id number] Admission: 09/23/19 Attend Phys: Serge Bhatti DO Discharge: Date of : 46 Report #: [id number] THIS REPORT FOR: cc: ERICK VALENCIA MD Physician not on staff Serge Bhatti DO ~ DATE OF SERVICE: 09/23/2019 REFERRING PHYSICIAN: Dr. Erick Zelaya. CHIEF COMPLAINT: Right shoulder pain. HISTORY OF PRESENT ILLNESS: As you know, the patient is an extremely pleasant 74-year-old female who has returned today in followup visit with recurrent right shoulder pain. As you are aware, the patient has been experiencing chronic right shoulder pain due to severe osteoarthritis for years. She has done very well with intermittent intra-articular shoulder injections. She returns today in followup visit to undergo next in the series. She states that over the past couple of weeks, her pain has begun to return, though she notes an improvement with the previous intra-articular shoulder injection of approximately 70% with this recurrence of pain without inciting injury or trauma. She returns today for next in the series of right intra-articular shoulder injections to build on success of previous intervention. She is placing pain today at a level of 7/10. ALLERGIES: No known drug allergies. CURRENT MEDICATIONS: Estradiol, lisinopril, hydrochlorothiazide, citalopram, zolpidem, tramadol, atorvastatin, diclofenac sodium, Provera, losartan, hydrocodone, and diclofenac. SOCIAL HISTORY: The patient denies tobacco, IV or illicit drug use. Denies any chronic alcohol use. 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 IMAGING: No new imaging available. PQRS: The patient has arthritic changes of bilateral shoulders, right greater than left, lumbar spine, bilateral hips and knees. No rheumatoid arthritis. She is placing her current pain score at 7/10. She is not a fall risk, has not had a fall in last 3 months. She is not on blood thinners, but is treated for hypertension. She is on chronic opioids and has a low opiate addiction potential. Pain impact score is 29/70, moderate interference of daily activities secondary to pain. PHYSICAL EXAMINATION: [facility] [address] [place] [address] PAIN MANAGEMENT CONSULTATION Name: REYNA BEACH Room #: [facility]#: [id number] Admission: 09/23/19 Attend Phys: Serge Bhatti DO Discharge: Date of : 47 Report #: [id number] VITAL SIGNS: Blood pressure 103/76, pulse 73, respiratory rate 16 and unlabored. The patient is 100% on room air. Height 5 feet 4 inches tall, weight 148.6 pounds, BMI calculated 25.5. GENERAL: Well-developed, well-nourished, well-hydrated 74-year-old female appearing her stated age, placing current pain score around 7/10. HEENT: Normocephalic, atraumatic. Pupils equal, round, reactive to light. Speech fluent. The patient deemed an excellent historian. EXTREMITIES: Show no clubbing, no cyanosis, and no edema. MUSCULOSKELETAL: Pain is elicited again with active and passive range of motion of the right shoulder. There is noted crepitus with movement. Pain is located both anterior and posterior of the lateral portion of the shoulder. There does not appear to be any changes in skin color or texture overlying the area. Strength appears symmetrical in left upper extremity and right upper extremity, though pain does cause giveaway strength on the right. ASSESSMENT: 1. Right shoulder pain. 2. Severe right osteoarthritis. PLAN: 1. The patient returns today in followup visit having noted excellent benefit with previous intra-articular shoulder injection. She had been doing very well until just recently where she has had a slow and progressive return of symptoms. She believes her symptoms are related to more cooking and cleaning around the house with the COVID virus sequestration. She has returned today in followup visit requesting to undergo intra-articular shoulder injection to address recurrent pain. She has been advised risks and benefits of this procedure, states she understood and wished to proceed. 2. No medication changes made at today's visit. The patient will continue current medical therapy. 3. We will see the patient back in followup visit on an as-needed basis for possible next in the series of right intra-articular shoulder injections. We also advised the patient if she wishes, we would be more than willing to provide a referral for surgical consultation. PROCEDURE NOTE DESCRIPTION OF PROCEDURE: Right intra-articular shoulder injection under fluoroscopic guidance. After obtaining written consent, the patient was taken back to fluoroscopy suite, placed in a supine position. The image intensifier (C-arm) was then brought into position over the right shoulder and AP imaging was obtained. The area was marked with sterile marker then prepped with chlorhexidine. A 27-gauge 1-1/4 inch needle was then used to anesthetize skin and subcutaneous tissue with 2 mL of 1% preservative-free lidocaine. [address] [address] PAIN MANAGEMENT CONSULTATION Name: REYNA BEACH Room #: [facility]#: [id number] Admission: 09/23/19 Attend Phys: Serge Bhatti DO Discharge: Date of : 46 Report #: [id number] A 25-gauge 2-inch needle was then advanced under fluoroscopic guidance towards the proximal head of the right humerus. Needle was advanced until reaching the proximal head of the humerus and retracted approximately 1 mm. After negative aspiration for heme, 0.2 mL of Omnipaque injected demonstrating excellent right shoulder arthrogram. After negative aspiration for heme, 3 mL of a solution containing 1 mL 40 mg per mL, 40 mg total triamcinolone along with 2 mL bupivacaine 0.5% was injected slowly. Needle retracted long-term, flushed with 1 mL of 1% lidocaine and then removed. Sterile bandage placed over injection site. There were no new motor deficits present in the upper extremity following procedure. The patient tolerated procedure well, carefully escorted to recovery room in stable condition. No apparent complications. After meeting discharge criteria, the patient discharged home. <ELECTRONICALLY SIGNED> By: Serge Bhatti DO 09/24/19 1157 [id number] Serge Bhatti DO /nt
== END | disposition home or self-care (01) ==
LOC: PAIN 06:41
DX: M25.511 Pain in right shoulder (principal); M19.011 Primary osteoarthritis, right shoulder; G89.29 Other chronic pain; M19.90 Unspecified osteoarthritis, unspecified site; Z79.899 Other long term (current) drug therapy; Z79.891 Long term (current) use of opiate analgesic; Z98.890 Other specified postprocedural states; Z88.8 Allergy status to other drugs, medicaments and biological substances

== ENCOUNTER → 2020-04-21 | Outpatient (CLI) | payer OTHER, BC ==
[~2020-04-21] VITALS: Ht 162.6 cm; Wt 67.3 kg
[~2020-04-21] MED LIST changes: +INTRAT INTRATHECA
--- NOTE | ~2020-04-21 | HPC ---
[facility] [place] [address] PAIN MANAGEMENT CONSULTATION Name: REYNA BEACH Room #: REG [facility].#: [id number] Admission: 04/21/20 Attend Phys: Serge Bhatti DO Discharge: Date of : 46 Report #: [id number] CC: ERICK Velazquez MD Physician staff DATE OF SERVICE: 04/21/2020 CHIEF COMPLAINT: Right shoulder pain. HISTORY OF PRESENT ILLNESS: As you know, the patient is an extremely pleasant 74-year-old female who is returning in followup visit with recurrent right shoulder pain. The patient has been experiencing chronic right shoulder pain due to severe osteoarthritis and rotator cuff injury for years. She has done very well with previous intra-articular shoulder injections, but the most recent did not provide long-term benefit. She is concerned that there have been changes within the shoulder that may have led to progression of symptoms. She returns today requesting an intra-articular shoulder injection in hopes of improving pain. She also wishes to discuss options for treatment if injections begin to fail. She denies injury or trauma to the shoulder that may have caused symptom reoccurrence. ALLERGIES: No known drug allergies. CURRENT MEDICATIONS: Diclofenac sodium, hydrocodone, losartan, Provera, atorvastatin, tramadol, zolpidem, citalopram, lisinopril, hydrochlorothiazide, estradiol. SOCIAL HISTORY: The patient denies tobacco, IV or illicit drug use. Denies any chronic alcohol use. 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 IMAGING: No new imaging available. PQRS: The patient has known arthritic changes of bilateral shoulders, right greater than left lumbar spine, bilateral hips and knees. No rheumatoid arthritis. The patient is placing current pain score at around 7/10 with medications and intrathecal pump infusion. She is not a fall risk, has not had a fall in last 3 months. She is not on blood thinners, but is treated for hypertension. She is on chronic opioids, has a low opiate addiction potential. Pain impact of 29/70, moderate interference of daily activities secondary to pain. PHYSICAL EXAMINATION: VITAL SIGNS: Blood pressure 124/67, pulse 76, respiratory rate 16 and unlabored. The patient is 100% on room air. Height 5 feet 4 inches tall, weight 148.4 pounds, BMI calculated 25.5. GENERAL: Well-developed, well-nourished, well-hydrated 74-year-old female appearing stated age, pain is rated today at 7/10. HEENT: Normocephalic, atraumatic. Pupils equal, round and reactive. EXTREMITIES: Show no clubbing, no cyanosis. No appreciable edema. MUSCULOSKELETAL: There is pain noted with passive and active range of motion again of the right shoulder. There is crepitus with movement. The patient is unable to participate in Provocating testing consistent with a rotator cuff injury due to increasing pain. Abduction of the shoulder is out to about 45 degrees before she is unable to maintain elevation on the right. ASSESSMENT: 1. Right shoulder pain. 2. Severe right osteoarthritis. 3. Likely rotator cuff injury. PLAN: 1. The patient returns today in followup visit requesting to undergo intra-articular shoulder injection under fluoroscopic guidance to address 7/10 pain. The patient denies injury or trauma that may have led to symptom reoccurrence. She has been considering options for treatment given the lack of efficacy from a long-term standpoint of pain relief with the previous injection. She wishes to undergo next in the series of intra-articular shoulder injections today, but also wants to discuss other treatment options. The following was discussed with the patient as further treatment options. We discussed physical therapy, stretching exercises and mobility techniques. We discussed medication management with either topical agents or additional oral medications. As you are aware, the patient has an intrathecal pump infusing chronic opioid along with oral opioids. Even with this elevated level of opioid use, her pain is a level of 7/10. Nonsteroidal anti-inflammatories could be beneficial either topically or orally. We discussed repeating the intra-articular shoulder injection today in hopes of improvement in symptoms. We also discussed ultimately surgical repair. I do feel this will ultimately be necessary given the x-ray imaging of her shoulder from our prior eval. The patient is agreeable with an orthopedic referral. 2. The patient was provided an orthopedic referral to [facility] to see Dr. Jero Griffin. The patient will contact the [facility] at her earliest convenience to establish an appointment. I did advise the patient if she needs assistance in getting that appointment scheduled, to contact our clinic. The patient was given the referral in written form today. We will be sending information over to Dr. Griffin's office in regards to her prior treatment with our clinic and our concerns of her right shoulder. 3. We made no changes in the patient's current medication management. She will continue current therapy as previously prescribed. 4. We plan to see the patient back in followup visit on an as needed basis for possible next in the series of intra-articular shoulder injections. We are hopeful she will see good benefit with today's procedure. PROCEDURE NOTE DESCRIPTION OF PROCEDURE: Right intra-articular shoulder injection under fluoroscopic guidance. After obtaining written consent, the patient was taken back to fluoroscopy suite, placed in supine position. The image intensifier (C-arm) was then brought into position over the right shoulder and AP imaging was obtained. The area was marked and then prepped in aseptic fashion using chlorhexidine. A 27-gauge 1-1/4 inch needle was then used to anesthetize skin and subcutaneous tissue with 2 mL of 1% preservative-free lidocaine. A 25-gauge 2-inch needle was then advanced under fluoroscopic guidance towards the proximal head of the right humerus. Needle was advanced until reaching the proximal head of the humerus then retracted approximately 1 mm. After negative aspiration for heme, 0.4 mL of Omnipaque injected demonstrating an excellent right shoulder arthrogram. After negative aspiration for heme, 3 mL of a solution containing 1 mL 40 mg per mL, 40 mg total triamcinolone along with 2 mL bupivacaine 0.5% was injected slowly. Needle was retracted mcfp, flushed with 1 mL of 1% preservative-free lidocaine and removed. Sterile bandage placed over injection site. There were no new motor deficits present in the upper extremities following procedure. The patient tolerated procedure well, carefully escorted to recovery room in stable condition. No apparent complications. After meeting discharge criteria, the patient discharged home. By: [id number] Serge Bhatti DO /nt
[2020-04-21 14:23] VITALS: BP 124/67
--- NOTE | 2020-04-21 14:37 | NUR ---
Pain Clinic Assessment: 1. History of Osteoarthritis: Left Lower Extremity Right Lower Extremity History of Rheumatoid Arthritis: Not Applicable 2. Height: 5 ft. 4 in. 162.6 cm. Weight: 148.4 lb. oz. 67.314 kg. Patient's BMI: 25.5 3. Vital Signs: BP: 124/67 Pulse: 76 Resp: 16 Temp: 02 Sat: 100 ECG Mon: 4. Pain Intensity: 7 WITH MEDS 5. Fall Risk: Dizziness: N Needs help standing or walking: N Fallen in the last 3 months: N Fall risk comments: 6. Patient on Blood Thinner: None 7. History of Hypertension: Y 8. Opioid Therapy greater than 6 weeks: N Opiate Contract Signed: 9. Risk Assessment Tool Provided: LOW-0 10. Functional Assessment Tool: 11. Recreational Drug Use: Never Drug Type: Tobacco Use: Never Smoker Tobacco Type: Amount or Packs/day: How Many Years: Alcohol Use: Yes Frequency: Quant:
== END | disposition home or self-care (01) ==
LOC: PAIN 06:59
PROVIDERS: ATTEND Anesthesiology Pain Medicine
DX: M25.511 Pain in right shoulder (principal); M19.011 Primary osteoarthritis, right shoulder; G89.29 Other chronic pain; I10 Essential (primary) hypertension; M19.90 Unspecified osteoarthritis, unspecified site; Z98.890 Other specified postprocedural states; Z79.899 Other long term (current) drug therapy; Z87.891 Personal history of nicotine dependence; Z88.8 Allergy status to other drugs, medicaments and biological substances

== ENCOUNTER → 2020-12-17 | Outpatient (CLI) | payer OTHER, BC ==
[~2020-12-17] MED LIST changes: +AMBIEN 5 MG TABL5 MG PO; +BIOTIN1 M1 PO; +CALCIUM500 MG PO; +MULTI VITAMIN1 EACH PO
[2020-12-17 13:44] LABS: URINE BILIRUBIN NEGATIVE (Negative); URINE BLOOD NEGATIVE (Negative); URINE CLARITY CLEAR; URINE COLOR YELLOW; URINE GLUCOSE-RANDOM* NEGATIVE (Negative); URINE KETONES NEGATIVE (Negative); URINE LEUKOCYTES-REFLEX TRACE (Negative); URINE NITRITE-REFLEX NEGATIVE (Negative); URINE PROTEIN (DIPSTICK) NEGATIVE (Negative); URINE SPECIFIC GRAVITY 1.015 (1.005-1.035); URINE UROBILINOGEN 0.2 E.U./dl (0.2-1.0)
[2020-12-17 13:46] LABS: INR 0.95; PROTIME 10.4 Seconds (10.5-12.1)
== END ==
LOC: PAC 12:22
PROVIDERS: ATTEND Orthopaedic Surgery Sports Medicine
DX: Z01.812 Encounter for preprocedural laboratory examination (principal); M19.011 Primary osteoarthritis, right shoulder; M25.511 Pain in right shoulder

== ENCOUNTER 2020-12-22 06:27 | Observation (INO) | payer OTHER, BC ==
[~2020-12-22] VITALS: Ht 160 cm; Wt 64.4 kg
--- NOTE | ~2020-12-22 | O ---
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 PROCEDURE PERFORMED: Right shoulder humeral head replacement with open biceps tenodesis. SURGEON: Jero Teague MD CELERY STRIPPER: Uzma Puga PA-C. ANESTHESIA: General with preoperative ultrasound-guided interscalene block. FLUIDS: 1 liter crystalloid. ESTIMATED BLOOD LOSS: 50 mL. IMPLANTS UTILIZED: DePuy Global Unite size 10 anatomic proximal body with a size 12 stem and a 48 x 18 eccentric humeral head. DESCRIPTION OF PROCEDURE: After proper identification of the patient and the operative site in preoperative holding area, the operative site signed by myself. Prophylactic antibiotics given. The patient elected to receive an ultrasound-guided block after reviewing the risks, benefits, alternatives, and potential complications with anesthesia. After a satisfactory block, the patient was brought back to the operative suite after induction of satisfactory general anesthesia per endotracheal tube. The patient was carefully positioned in the beach chair with head of bed elevated approximately 40 degrees. A bump was placed behind the right shoulder. The right shoulder was sterilely prepped and draped in the usual manner and placed within a [employer] limb positioning system. Final skin draping was with Ioban. Anterior deltopectoral approach was planned. Skin was incised sharply. Full-thickness skin flaps were developed. Deltopectoral interval was identified. Cephalic vein was retracted laterally and the long head of biceps tendon was identified. Tenosynovitis was noted [address] [address] OPERATIVE REPORT Name: REYNA BEACH Room #: 150-3 ADM IN M.R.#: [id number] Admission: 12/22/20 Attend Phys: Jero Hdez Discharge: Date of : 47 Report #: [id number] about the tendon. Upper border of the pectoralis major was released portion to librarian helper in exposure purposes and partial thickness tearing in addition to the tenosynovitis of the biceps was noted. Bicipital groove had been opened. Long head of biceps was tenodesed to the undersurface of the pectoralis major using #2 FiberWire. Stump was followed proximally. Rotator interval was opened and higher grade partial thickness tearing with surrounding tendinosis was noted. Anterior circumflex vessels were identified, ligated and cauterized. These were carefully released. Axillary nerve was carefully identified and protected throughout the entire procedure. A lesser tuberosity osteotomy was performed with a thin flexible osteotome. Capsule was then removed, pronounced erosive and degenerative changes were noted within the glenohumeral joint. Effusion was evacuated, pronounced delamination of the humeral head flattening and collapse were noted as well as early erosive changes on the glenoid. Circumferential labral tearing was noted. Humeral head osteotomy was performed in approximately 20 degrees of retroversion using 135-degree guide. Peripheral osteophytes were removed. The rotator cuff remained intact and the proximal body and metaphysis was noted to be smaller than the size that was reamed by hand. She was able to be reamed up to a size 12 stem, but had more of a size 10 proximal body, so a 10 trial and Global Unite brosteotome were utilized. A protection plate was applied and attention was divided to the glenoid. The patient's shoulder was placed within the [employer] preoperative planning software and due to extremely thin nature of her residual remaining glenoid bone as well as the intraoperative findings after the biceps and labrum had been excised circumferentially and the anterior capsule was carefully released from subscap with right angle retractor. Due to the extremely thin nature of her glenoid, I was concerned about possible fracture. This was attempted to be reamed to utilize an insight glenoid and I made the intraoperative decision to just proceed with humeral head replacement based on the intraoperative findings as well as the preoperative imaging studies. The anterior capsule had been released and excised to librarian helper in her external rotation and excursion of the subscapularis. Labrum had been excised circumferentially. A 48 x 18 eccentric humeral head provided the best overall fit and recreation of the proximal humeral anatomy and then four drill holes were placed in the anterior aspect of the humerus where #2 FiberWires were passed. The joint and humeral canal was thoroughly irrigated with normal saline and then the Global Unite stem was assembled on the back table. This was then impacted into position with the inferior 2 sutures being placed around the stem. This was impacted into position and had good purchase. The eccentric head was carefully impacted into position. This nicely restored the proximal humeral anatomy and then the humerus was reduced. There was good stability with range of motion as would be expected with her medial erosion and subscapularis was repaired with four #2 FiberWires in a modified Jose Angel-Vernon technique. The patient could easily externally rotated 45 degrees. Axillary nerve remained intact. The joint was again thoroughly irrigated and then 1 gram of vancomycin powder was utilized half at deep, half at more superficial and 0 Vicryl was used to close the [facility] [address] [place] [address] OPERATIVE REPORT Name: REYNA BEACH Room #: 150-3 ADM IN M.R.#: [id number] Admission: 12/22/20 Attend Phys: Jero Hdez Discharge: Date of : 47 Report #: [id number] deltopectoral interval, 2-0 Vicryl in the subcutaneous tissues followed by running 4-0 Monocryl. Dermabond was applied as well as a sterile dressing and a sling and abduction pillow, which will be utilized for 4 weeks postoperatively. Qualified recovery assistant utilized throughout the entire procedure to aid in patient limb positioning, visualization and retraction of soft tissues, instrument passage, closure and sling and dressing application. Jero Teague MD GRV/KDA By: [id number] Jero Teague MD /nt
[2020-12-22 07:54] VITALS: BP 132/74
[2020-12-22 10:41] VITALS: BP 127/76
--- NOTE | 2020-12-22 14:46 | NUR ---
ASSUMED PT CARE AT 1045. PT IS ALERT & ORIENTED X4. PT HAS IV SITE ON L AC [address] @80 ML/HR. PT IS ON ROOM AIR. PT HAS R SHOULDER HEMIARTHROPLASTY THIS AM. PT HAS AQUACEL DRESSING ON R SHOULDER, POLAR CARE, SLING AND SCD. PT IS UP WITH ASSIST X1 WITH WALKER AND GAITBELT TO THE BATHROOM. PT C/O OF HEADACHE AND GIVEN TYLENOL PER PT REQUEST. PT FAMILY WAS AT THE BEDSIDE. PT TOLERATED CLEAR LIQUID DIET THIS LUNCH AND ADVANCED DIET FOR DINNER. PT TOLERATED DIET AND MEDICATION DURING THE SHIFT. NO C/O OF NAUSEA AND VOMITING DURING THE SHIFT. PT ON THE BED WATCHING TV, BED ON THE LOWEST POSITION, SIDE RAILS UP, CALL LIGHT WITHIN REACH. WILL CONTINUE TO MONITOR PT. FOLLOW POC.
--- NOTE | 2020-12-22 15:26 | NUR ---
ASSESSMENT: CM REVIEWED CHART AND SPOKE WITH PATIENT AT THE BEDSIDE ALONG WITH HER DAUGHTER. PT LIVES AT HOME WITH HER . PT IS S/P TOTAL SHOULDER ARTHROPLASTY. PT REPORTS SHE HAS ABOUT 2 STEPS WITH HANDRAIL TO ENTER HER HOME AND STATES SHE HAS BOUGHT A RECLINDER CHAIR ON BOTH LEVELS. PT REPORTS HAVING ABOUT 9 TOTAL STEPS WITH HANDRAILS TO HER UPPER LEVEL WHERE BEDROOM IS. PT REPORTS SHE IS NORMALLY INDEPENDENT WITH ADLS AND AMBULATION. PT REPORTS THAT SHE HAS HAD HH IN THE PAST BUT UNSURE WHAT AGENCY IT WAS WITH BUT WAS ARRANGED THROUGH [facility]. PT REPORTS HER IS VERY SUPPORTIVE AND CAN ASSIST HER. PT REPORTS SHE DOES NOT HAVE OUTPATIENT THERAPY ARRANGED BUT KNOWS WHERE SHE WOULD GO IF SHE NEEDS IT. CM WILL CONTINUE TO FOLLOW TO ASSIST NEEDED.
[2020-12-22 15:59] VITALS: BP 117/68
[2020-12-22 20:40] VITALS: BP 114/59
--- NOTE | 2020-12-23 04:52 | NUR ---
ASSUMED PT CARE AT 1930. PT WAS LYING IN BED AND HAVING A CONVERSATION WITH SPOUSE. INTRODUCED SELF TO PT AND SPOUSE. PT WAS PLEASNT AND INTERACTIVE. PT AND SPOUSE DID NOT EX[PRESS ANY CONCERNS AND NO VISIBLE SIGN OF DISTRESS WAS NOTED. PT WAS ALERT AND ORIENTED X4. BED ON LOWEST LOCKED POSITION WITH BED ALARM ON AND CALL LIGHT WITHIN REACH. PT HAD DIFFICULTY SLEEPING DUE TO A HEADACHE WHITH WAS RELIEVED COUPLE HOURS AFTER PAIN MED WAS GIVEN.
[2020-12-23 05:16] LABS: HEMOGLOBIN 9.3 gm/dL (12.0-15.0)
[2020-12-23 05:30] VITALS: BP 144/65
[2020-12-23 05:56] LABS: POTASSIUM 4.7 mmol/L (3.5-5.1)
[2020-12-23 08:09] VITALS: BP 126/69
--- NOTE | 2020-12-23 10:48 | NUR ---
ASSUMED PT CARE THIS AM. PT IS ALERT & ORIENTED X4. PT HAS IV SITE ON L AC 20 GAUGE RUNNING LR @ 80ML/HR. PT IS UP WITH ASSIST X1 WITH WALKER AND GAITBELT. PT IS ON ROOM AIR. PT DID WELL WITH PHYSICAL AND OCCUPATIONAL THERAPY THIS AM. PT HAS R SHOULDER AQUACEL DRESSING, POLAR CARE, SLING AND SCD. PT C/O OF PAIN MEDICATION AND GIVEN PAIN MEDICATION PER PT REQUEST. PT ON THE BED SLEEPING, BED ON THE LOWEST POSITION, SIDE RAILS UP, CALL LIGHT WITHIN REACH. WILL CONTINUE TO MONITOR PT. FOLLOW POC.
[2020-12-23 12:44] VITALS: BP 126/69
--- NOTE | 2020-12-23 13:36 | NUR ---
ON-GOING ASSESSMENT: CM REVIEWED CHART. PER ATTENDING PATIENT MAY DISCHARGE LATER TOADY IF PAIN IS CONTROLLED. PT DID WELL WITH THERAPY AND IS SAFE FOR HOME. PT HAS NO NEEDS FROM CM.
== END 2020-12-23 14:17 | disposition home or self-care (01) ==
LOC: PRE → 4S 06:27 → TBA 06:27 → 4S 10:40 → PRE 11:53 → 4S 12:36 → PRE 14:29 → 4S 12-23 14:17
PROVIDERS: Physician Assistant Surgical; ADMIT Orthopaedic Surgery Sports Medicine; ATTEND Orthopaedic Surgery Sports Medicine
DX: M19.011 Primary osteoarthritis, right shoulder (principal); M75.21 Bicipital tendinitis, right shoulder; M75.111 Incomplete rotator cuff tear or rupture of right shoulder, not specified as traumatic; Z79.899 Other long term (current) drug therapy
CPT/HCPCS: 50010; 50101; 50172; 50386; 50403; 50697; 50733; 50935; 51320; 52001; 52138; 52258; 53000; 53078; 54118; 56524; 56525; 56526; 56530; 57095; 57103; 57932; 57935; 58362; 58585; 62110; 62900; 70005